=== PATIENT | male | born 2000 | race Caucasian/White ===

== ENCOUNTER 2022-08-16 15:57 | Emergency (ER) | payer OTHER ==
[~2022-08-16] VITALS: Ht 182 cm; Wt 84.0 kg
[2022-08-16] MEDS ORDERED: NS IV 1000 ML 1,000 ML IV STA (16:09)
[2022-08-16] MEDS ORDERED: KETOROLAC 30 MG/ML VIAL IVP ONE (16:15)
--- NOTE | 2022-08-16 16:15 | ED Abdominal Pain ---
General Chief Complaint: Abdominal/GI Problems Stated Complaint: ADB PAIN Nursing Triage Note: PT STATES HAS ABD PAIN THAT STARTED YESTERDAY. PT POINTS TO R LOWER ABD RATES 5/10. PT WAS SEEN AT [facility] TODAY Source of Information: Patient Exam Limitations: No Limitations History of Present Illness Date Seen by Provider: August 16, 2022 Time Seen by Provider: 16:12 Initial Comments Patient is a 22-year-old male who presents ED with right lower quadrant pain. Pain started last night. Sharp pain that rated 8 out of 10. Yesterday started having chills and felt feverish. Pain has been constant. Pain has improved today rates 2 out of 10. Worse with movement. Denies of any radiation. Did have an episode of vomiting last night. Took ibuprofen last night for pain. Noted darker urine without pain, penile discharge, scrotum pain, scrotum swelling. No history of previous abdominal surgery. He Went to [facility] and was recommended to come the ER for further evaluation. Patient states chills and felt feverish has improved. Patient denies chest pain, cough, sore throat, headache, dizziness, visual changes Allergies and Home Medications Allergies Coded Allergies: amoxicillin (Verified Allergy, Unknown, 08/16/22) Patient Home Medication List Home Medication List Reviewed: Yes Ciprofloxacin HCl (Ciprofloxacin HCl) 500 Mg Tablet, 500 MG PO BID Prescribed by: MATT NORIEGA on 08/16/22 173 Metronidazole (Metronidazole) 500 Mg Tablet, 500 MG PO TID Prescribed by: MATT NORIEGA on 08/16/22 173 Review of Systems Review of Systems Constitutional: No chills, No diaphoresis, No malaise, No weakness EENTM: No Double Vision, No Eye Pain Respiratory: Denies Cough, Denies Orthopnea Cardiovascular: Denies Chest Pain Gastrointestinal: Denies Abdomen Distended; Abdominal Pain Genitourinary: Denies Burning, Denies Discharge, Denies Drainage, Denies Fr equency; Other (Dark urine) Musculoskeletal: No back pain, No joint pain Skin: No change in color, No change in hair/nails All Other Systems Reviewed Negative Unless Noted: Yes Past Ymryhrc-Pydaiq-Pewxfv Hx Patient Social History Tobacco Use?: No Use of E-Cig and/or Vaping dev: Yes E-Cig or Vaping type used: Nicotine Substance use?: Yes Substance type: Marijuana Alcohol Use?: Yes Alcohol type: Beer Alcohol Frequency: Couple times a week Pt feels they are or have been: No Immunizations Up To Date Influenza Vaccine Up-to-Date: No; Not Current Physical Exam Vital Signs Vital Signs - First Documented 08/16/22 08/16/22 16:05 17:40 Temp 36.4 Pulse 94 Resp 16 B/P (MAP) 149/108 (122) Pulse Ox 98 O2 Delivery Room Air Capillary Refill : Less Than 3 Seconds Height/Weight/BMI Height: '" Weight: lbs. oz. kg; 25.00 BMI Method: General Appearance: WD/WN, no apparent distress HEENT: PERRL/EOMI, normal ENT inspection, TMs normal, pharynx normal Neck: non-tender, full range of motion, supple Respiratory: chest non-tender, lungs clear, normal breath sounds, no respiratory distress, no accessory muscle use Cardiovascular: regular rate, rhythm, no edema, no gallop, no JVD Gastrointestinal: normal bowel sounds, soft, no organomegaly, other (Right lower quadrant tenderness) Extremities: normal range of motion, non-tender, normal inspection, no pedal edema, no calf tenderness Back: normal inspection, no CVA tenderness, no vertebral tenderness Neurologic/Psychiatric: tourist adviser II-XII nml as tested, no motor/sensory deficits, alert, normal mood/affect, oriented x 3 Skin: normal color, warm/dry Progress/Results/Core Measures Results/Orders Lab Results Laboratory Tests Test 08/16/22 16:05 08/16/22 16:29 Range/Units White Blood Count 11.6 H 4.3-11.0 10^3/uL Red Blood Count 5.41 4.30-5.52 10^6/uL Hemoglobin 16.7 13.3-17.7 g/dL Hematocrit 47 40-54 % Mean Corpuscular Volume 87 80-99 fL Mean Corpuscular Hemoglobin 31 25-34 pg Mean Corpuscular Hemoglobin Concent 35 32-36 g/dL Red Cell Distribution Width 11.4 10.0-14.5 % Platelet Count 251 130-400 10^3/uL Mean Platelet Volume 10.2 9.0-12.2 fL Immature Granulocyte % (Auto) 0 % Neutrophils (%) (Auto) 77 H 42-75 % Lymphocytes (%) (Auto) 13 12-44 % Monocytes (%) (Auto) 8 0-12 % Eosinophils (%) (Auto) 1 0-10 % Basophils (%) (Auto) 0 0-10 % Neutrophils # (Auto) 9.0 H 1.8-7.8 10^3/uL Lymphocytes # (Auto) 1.6 1.0-4.0 10^3/uL Monocytes # (Auto) 1.0 0.0-1.0 10^3/uL Eosinophils # (Auto) 0.1 0.0-0.3 10^3/uL Basophils # (Auto) 0.0 0.0-0.1 10^3/uL Immature Granulocyte # (Auto) 0.0 0.0-0.1 10^3/uL Sodium Level 139 135-145 MMOL/L Potassium Level 4.0 3.6-5.0 MMOL/L Chloride Level 100 98-107 MMOL/L Carbon Dioxide Level 26 21-32 MMOL/L Anion Gap 13 5-14 MMOL/L Blood Urea Nitrogen 15 7-18 MG/DL Creatinine 1.27 0.60-1.30 MG/DL Estimat Glomerular Filtration Rate 83 BUN/Creatinine Ratio 12 Glucose Level 107 H 70-105 MG/DL Calcium Level 10.0 8.5-10.1 MG/DL Corrected Calcium 8.5-10.1 MG/DL Total Bilirubin 1.4 H 0.1-1.0 MG/DL Aspartate Amino Transf (AST/SGOT) 19 5-34 U/L Alanine Aminotransferase (ALT/SGPT) 16 0-55 U/L Alkaline Phosphatase 67 40-136 U/L Total Protein 8.0 6.4-8.2 GM/DL Albumin 4.8 H 3.2-4.5 GM/DL Lipase 11 8-78 U/L Urine Color YELLOW Urine Clarity CLEAR Urine pH 6.0 5-9 Urine Specific [place] >=1.030 1.016-1.022 Urine Protein 1+ H NEGATIVE Urine Glucose (UA) NEGATIVE NEGATIVE Urine Ketones NEGATIVE NEGATIVE Urine Nitrite NEGATIVE NEGATIVE Urine Bilirubin NEGATIVE NEGATIVE Urine Urobilinogen 2.0 < = 1.0 MG/DL Urine Leukocyte Esterase NEGATIVE NEGATIVE Urine RBC (Auto) NEGATIVE NEGATIVE Urine RBC NONE /HPF Urine WBC NONE /HPF Urine Squamous Epithelial Cells RARE /HPF Urine Crystals NONE /LPF Urine Bacteria TRACE /HPF Urine Casts NONE /LPF Urine Mucus SMALL H /LPF Urine Other RARE SPERM /HPF Urine Culture Indicated NO My Orders Orders - KATTY JEAN BAPTISTE Cbc With Automated Diff (08/16/22 16:09) Comprehensive Metabolic Panel (08/16/22 16:09) Lipase (08/16/22 16:09) Ns Iv 1000 Ml (Sodium Chloride 0.9%) (08/16/22 16:09) Ketorolac Injection (Toradol Injection) (08/16/22 16:15) Ct Abd/Pelv W (Appendicitis) (08/16/22 16:09) Ua Culture If Indicated (08/16/22 16:12) Iohexol Injection (Omnipaque 350 Mg/Ml 1 (08/16/22 16:30) Received Contrast (Hold Metformin- Contr (08/16/22 16:30) Ns (Ivpb) (Sodium Chloride 0.9% Ivpb Bag (08/16/22 16:30) Medications Given in ED Current Medications Medications Dose Ordered Sig/Jabier Route Start Time Stop Time Status Last Admin Dose Admin Iohexol 100 ml ONCE ONCE IV 08/16/22 16:30 08/16/22 16:31 DC 08/16/22 16:36 80 ML Ketorolac Tromethamine 30 mg ONCE ONCE IVP 08/16/22 16:15 08/16/22 16:16 DC 08/16/22 16:19 30 MG Sodium Chloride 100 ml ONCE ONCE IV 08/16/22 16:30 08/16/22 16:31 DC 08/16/22 16:37 80 ML Vital Signs/I&O 08/16/22 08/16/22 16:05 17:40 Temp 36.4 Pulse 94 82 Resp 16 16 B/P (MAP) 149/108 (122) 141/89 Pulse Ox 98 98 O2 Delivery Room Air Blood Pressure Mean: 122 Departure Communication (PCP) Patient presents to the ED for right lower quadrant pain. This started yesterday. Episode of vomiting last night. States he has had chills and body aches last night but that did improve. Pain has improved and rates it 3 out of 10. Pain Localized to right lower quadrant without radiation. Report dark urine. No history of previous abdominal surgery. Pain seems to be worse with movement or when riding in a vehicle coming over to the ED. Patient does have right lower quadrant tenderness on palpation. Positive psoas sign. Vital signs stable. Differential diagnoses appendicitis, urolithiasis, cystitis. CBC, CMP, lipase and urinalysis was ordered. Slight elevated white blood count at 11.6. Urinalysis without evidence of infection or hematuria. Normal kidney function. CT abdomen and pelvis shows concern for early appendicitis. Appendix mildly dilated 0.9 cm with surrounding stranding. Patient was discussed with Dr. Ann general surgeon. Discussed options with patient. 1 option would to start a antibiotic and to see if this would improve conservatively. Second option would be to stay overnight and have surgery in the morning. Patient was requesting for surgical intervention after talking with mother. He was requesting to go home and start the antibiotics at this time and follow-up in the morning. Dr. Ann was okay with this. Follow-up in the office at 9 AM. If any worsening pain, fever to return back to ED. patient is allergic to penicillins. Patient was started on Cipro and Flagyl Impression Primary Impression: Appendicitis Disposition: 01 HOME, SELF-CARE Condition: Stable Departure-Patient Inst. Decision time for Depature: 17:25 Referrals: BRINA ANN DO Patient Instructions: Appendectomy, Open Surgery (DC) Add. Discharge Instructions: Need to follow-up with Dr. Ann tomorrow at 9 AM to schedule surgery. If any worsening symptoms or pain to return back to ED All discharge instructions reviewed with patient and/or family. Voiced understanding. Scripts Metronidazole (Metronidazole) 500 Mg Tablet 500 MG PO TID for 7 Days, #21 TAB Prov: KATTY JEAN BAPTISTE 08/16/22 Ciprofloxacin HCl (Ciprofloxacin HCl) 500 Mg Tablet 500 MG PO BID for 7 Days, #14 TAB Prov: KATTY JEAN BAPTISTE 08/16/22 Work/School Note: School/Childcare Release Date Seen in the Emergency Department: August 16, 2022 Time Dismissed from Emergency Department: 17:32 Return to School: August 18, 2022 KATTY JEAN BAPTISTE August 16, 2022 16:15
[2022-08-16 16:16] LABS: BASOPHILS % (AUTO) 0 % (0-10); EOSINOPHILS # (AUTO) 0.1 10^3/uL (0.0-0.3); EOSINOPHILS % (AUTO) 1 % (0-10); HEMATOCRIT 47 % (40-54); HEMOGLOBIN 16.7 g/dL (13.3-17.7); LYMPHOCYTES # (AUTO) 1.6 10^3/uL (1.0-4.0); LYMPHOCYTES % (AUTO) 13 % (12-44); MEAN CORPUSCULAR HEMOGLOBIN 31 pg (25-34); MEAN CORPUSCULAR HGB CONC 35 g/dL (32-36); MEAN CORPUSCULAR VOLUME 87 fL (80-99); MEAN PLATELET VOLUME 10.2 fL (9.0-12.2); MONOCYTES % (AUTO) 8 % (0-12); NEUTROPHILS % (AUTO) 77 % (42-75); PLATELET COUNT 251 10^3/uL (130-400); WHITE BLOOD COUNT 11.6 10^3/uL (4.3-11.0)
[2022-08-16 16:21] LABS: ALBUMIN 4.8 GM/DL (3.2-4.5); CHLORIDE 100 MMOL/L (98-107); SODIUM 139 MMOL/L (135-145)
[2022-08-16 16:23] LABS: GLUCOSE 107 MG/DL (70-105)
[2022-08-16 16:25] LABS: BILIRUBIN,TOTAL 1.4 MG/DL (0.1-1.0); CARBON DIOXIDE 26 MMOL/L (21-32)
[2022-08-16 16:27] LABS: ALKALINE PHOSPHATASE 67 U/L (40-136); CREATININE SERUM 1.27 MG/DL (0.60-1.30); GFR ESTIMATED 83
[2022-08-16 16:28] LABS: BUN/CREATININE RATIO 12
[2022-08-16 16:30] LABS: ALANINE AMINOTRANSFERASE 16 U/L (0-55); LIPASE 11 U/L (8-78)
[2022-08-16] MEDS ORDERED: IOHEXOL 350 MG/ML 100 ML (OMNIPAQUE 350) VIAL IV ONE (16:30)
[2022-08-16] MEDS ORDERED: NS 100 ML (IVPB) BAG IV ONE (16:30)
[2022-08-16] MEDS ORDERED: HOLD METFORMIN - RECEIVED CONTRAST 20 ML VIAL IV SCH (16:30)
[2022-08-16 16:35] LABS: BILIRUBIN,URINE NEGATIVE (NEGATIVE); CLARITY,URINE CLEAR; COLOR,URINE YELLOW; GLUCOSE, URINE (UA) NEGATIVE (NEGATIVE); KETONES,URINE NEGATIVE (NEGATIVE); LEUKOCYTE ESTERASE ,URINE NEGATIVE (NEGATIVE); NITRITE,URINE NEGATIVE (NEGATIVE); PROTEIN,URINE 1+ (NEGATIVE)
[2022-08-16 16:46] LABS: BACTERIA,URINE TRACE /HPF; SQUAMOUS EPITHELIAL CELL,UR RARE /HPF; URINE OTHER RARE SPERM /HPF
--- NOTE | 2022-08-16 16:48 | Diagnostic Imaging Report ---
EXAMINATION: CT abdomen and pelvis with intravenous contrast. TECHNIQUE: Multiple contiguous axial images were obtained through the abdomen and pelvis after the uneventful administration of intravenous contrast. All CT scans use one or more of the following dose optimizing techniques: automated exposure control, MA and/or KvP adjustment based on patient size and exam type or iterative reconstruction. HISTORY: Right lower quadrant abdominal pain. COMPARISON: None available. FINDINGS: Lung bases: The lung bases are clear. Solid organs: The liver is normal without focal lesion. The gallbladder is normal. There is no biliary ductal dilation. Pancreas is normal. Spleen is normal. Adrenal glands are normal. The kidneys are normal without hydronephrosis. Bowel: The stomach and small bowel are normal without obstruction. The colon is normal. The appendix is mildly dilated with mild surrounding inflammatory stranding. Appendix measures up to 0.9 cm. Peritoneum: There is no intraperitoneal free fluid or free air. There are a few prominent right lower quadrant lymph nodes which are nonspecific and may be reactive. Vasculature: Normal without aneurysm. Musculoskeletal: No suspicious osseous lesion or compression fracture. Pelvis: The prostate gland is normal. The urinary bladder is normal. IMPRESSION: 1. Findings concerning for early acute appendicitis without abscess or free air. 2. Likely reactive lymphadenopathy within the right lower quadrant. Dictated by: Dictated on workstation # [id number]
[2022-08-16] MEDS ORDERED: AMOX1TAB12 PO (17:26)
[2022-08-16] MEDS ORDERED: CIPR500T5 PO (17:32)
[2022-08-16] MEDS ORDERED: METR-145 PO (17:32)
[2022-08-16 17:40] VITALS: BP 141/89
[2022-08-17] MEDS ORDERED: ACHD5005 PO (11:57)
== END 2022-08-16 17:40 | disposition home or self-care (01) ==
LOC: ER 16:04
DX: K37 Unspecified appendicitis (principal); F17.290 Nicotine dependence, other tobacco product, uncomplicated; Z88.0 Allergy status to penicillin
CPT/HCPCS: 36415; 74177; 80053; 81000; 83690; 85025

== ENCOUNTER 2022-08-17 09:21 | Day surgery (SDC) | payer OTHER ==
[~2022-08-17] VITALS: Ht 182.9 cm; Wt 84.0 kg
[2022-08-17] VITALS (11 sets, daily range): BP systolic 109–134; BP diastolic 61–91
[~2022-08-17 09:21] MED LIST: AMOX1TAB12 PO; CIPR500T5 PO; METR-145 PO
[2022-08-17] MEDS ORDERED: NS (IVPB) 50 ML ONE (10:17)
[2022-08-17] MEDS ORDERED: ceFAZolin INJECTION 2,000 MG ONE (10:17)
[2022-08-17] MEDS ORDERED: LACTATED RINGERS 1,000 ML IV PRN (10:30)
[2022-08-17] MEDS ORDERED: ceFAZolin INJECTION 2,000 MG in NS (IVPB) 50 ML IV ONE (10:30)
[2022-08-17] MEDS ORDERED: ONDANSETRON 4 MG/2 ML (SDV) Z0FRAN ONE (10:34)
[2022-08-17] MEDS ORDERED: SEVOFLURANE (ULTANE) 15 ML INHAL SOLN ONE (10:34)
[2022-08-17] MEDS ORDERED: ROCURONIUM 50 MG/5 ML (ZEMURON) VIAL IV ONE (10:34)
[2022-08-17] MEDS ORDERED: LIDOCAINE PF 2% 5 ML (XYLOCAINE) VIAL ONE (10:34)
[2022-08-17] MEDS ORDERED: proPOfol 200 MG/20 ML (DIPRIVAN) VIAL IV ONE (10:34)
[2022-08-17] MEDS ORDERED: fentaNYL INJ 100 MCG/2 ML AMP ONE (10:35)
[2022-08-17] MEDS ORDERED: MIDAZOLAM 2 MG/2 ML (VERSED) VIAL ONE (10:35)
[2022-08-17] MEDS ORDERED: BUP/EPI 0.5% 1:200,000 (SENSORCAINE) 30 ML VIAL ONE (10:46)
[2022-08-17] MEDS ORDERED: ONDANSETRON 4 MG/2 ML (SDV) Z0FRAN IVP PRN (11:15)
[2022-08-17] MEDS ORDERED: morphine INJ 10 MG/ML 1ML (SYR OR VIAL) IVP ONE (11:15)
[2022-08-17] MEDS ORDERED: HYDROmorphone 2 MG/ML VIAL (DILAUDID) IV ONE (11:15)
[2022-08-17] MEDS ORDERED: GLYCOPYRROLATE 0.2 MG/ML (ROBINUL) 2 ML VIAL ONE (11:41)
[2022-08-17] MEDS ORDERED: NEOSTIGMINE (BLOXIVERZ ) 1 MG/1ML 10 ML VIAL ONE (11:41)
--- NOTE | 2022-08-17 11:56 | Progress Note-Post Operative ---
Post-Operative Progess Note Surgeon (s)/University Internship (s) Surgeon BRINA HARTMAN DO University Internship: MATT [employer] student Pre-Operative Diagnosis ACUTE APPENDICITIS Post-Operative Diagnosis same Procedure & Operative Findings Date of Procedure 08/17/22 Procedure Performed/Findings PROCEDURE: Laparoscopic appendectomy. COMPLICATIONS: None. INDICATIONS: The patient is a 22 year old male who has been having right lower quadrant abdominal pain. Patient's exam consistent with appendicitis. I discussed risk and benefits of laparoscopic appendectomy and all indicated procedures with the possibility being a normal appendix. The patient understands the risks and benefits and wishes to proceed. Consent was signed on the chart. DESCRIPTION OF PROCEDURE: The patient was taken to the operating suite, prepped and draped in a sterile fashion. Timeout was performed. Local anesthetic was infiltrated just above the umbilicus, a #11- blade scalpel was used to make a skin incision. Cautery was used to dissect down to the fascia and scored. Kochers were used to grasp and elevate it and the abdomen was then entered. A 0 Vicryl was placed in a figure-of- eight fashion for closure at the end of the case. The balloon trocar was inserted into the abdomen and pneumoperitoneum was achieved. Under direct visualization of the laparoscope, a 5 mm trocar was placed in the suprapubic region and a 5 mm trocar was placed in the left lower quadrant. Appendix was located, it was under the terminal ileum and very inflamed with some fibrinous material seen. Came across the mesoappendix with the Ligasure in stepwise fashion, down to the base of the appendix. Once at the base an Endo-ANUSHA 2.5 stapler was then fired across the base of the appendix. It was then placed in an Endobag and removed through the 12 mm trocar site. Saw beginnings of bilateral direct inguinal hernia; pictures taken. The abdomen was then desufflated and the trocars were removed. The 0 Vicryl placed at the beginning of the case was then tied closing the 12 mm fascial defect. The skin was then closed using 4-0 Monocryl in a subcuticular fashion. The abdomen was then washed and dried and Skin Affix was placed over the incisions. The patient tolerated the procedure well without any complications and was taken to the recovery room in stable condition. Anesthesia Type GET Estimated Blood Loss Estimated blood loss (mL): scant Specimens/Packing Specimens Removed BRINA Lamar DO August 17, 2022 11:56
[2022-08-17] MEDS ORDERED: ACHD5005 PO (11:57)
--- NOTE | 2022-08-17 11:58 | Discharge Inst-Surgical ---
Discharge Inst-Surgical Depart Medication/Instructions New, Converted or Re-Newed RX: Transmitted to Pharmacy Patient Instructions Follow up Appt: Make appointment for 1 week. [phone] Instructions: No lifting greater than 20 pounds. No strenuous activity. May shower in 24 hours, no tub bath or soaking. Use incentive spirometer at home as directed. No Smoking Skin/Wound Care: May remove bandages in am. You need to leave the Dermabond on incision it will fall off on it's own. Symptoms to Report: Appetite Changes, Extremity Discoloration, Numbness/Tingling, Swelling Increased, Bleeding Excessive, Eyesight Changes, Pain Increased, Urine Color Change, Constipation(Persistent), Fever over 101 degree F, Pain/Pressure in chest, Urinating Difficulty, Cough Up/Vomit Blood, Heart Beat Irreg/Pounding, Pain/Pressure in jaw, Cramps in feet or legs, Lightheadedness, Pain/Pressure in shoulder, Diarrhea(Persistent), Memory Changes Suddenly, Questions/Concerns, Weight gain consecutive days, Dizziness/Fainting, Nausea/Vomiting, Shortness of Breath, Weight gain over 2 pounds If questions or concerns contact your physician Or seek help at emergency department. Activity Activity as Tolerated: Yes Activity Instructions: Avoid Stress to Incision Driving Instructions: No Driving/Refer to Dr. Gilbert Discharge Diet: No Restrictions Diet After 24 Hours: Clear Liquid if Nauseous If Any Problems/Questions/Issu: Contact Your Physician, Go to Emergency Room Skin/Wound Care Infection Signs and Symptoms: Increased Redness, Foul Odor of Wound, Increased Drainage, Skin Itchy or Has a Rash, Increased Swelling, Temperature Above 101 F Wound Care Comment: heating pad to shoulder or neck tonight for pain Bathing Instructions: Shower Stitches/[place]/Dermabond Dis: Dermabond Ice Pack: Ice On and Off Site BRINA HARTMAN DO August 17, 2022 11:58
--- NOTE | 2022-08-17 12:08 | Anesthesia-General Post-Op ---
General Patient Condition Mental Status/LOC: Same as Preop Cardiovascular: Satisfactory Nausea/Vomiting: Absent Respiratory: Satisfactory Pain: Controlled Complications: Absent Post Op Complications Complications None Follow Up Care/Instructions Patient Instructions None needed. Anesthesia/Patient Condition Patient Condition Patient is in PACU and doing well, no complaints, stable vital signs, no apparent adverse anesthesia problems. No complications reported per nursing. RONDA CORONA DO August 17, 2022 12:08
[2022-08-17] MEDS ORDERED: MEPERIDINE (DEMEROL) INJ 50 MG/ML IVP ONE (12:15)
== END 2022-08-17 13:40 | disposition home or self-care (01) ==
LOC: SDC 09:21
PROVIDERS: ATTEND Surgery
DX: K35.80 Unspecified acute appendicitis (principal); K40.20 Bilateral inguinal hernia, without obstruction or gangrene, not specified as recurrent; Z28.310 Unvaccinated for COVID-19
CPT/HCPCS: 87081